=== PATIENT | male | born 1995 | race African-American/Black ===

== ENCOUNTER 2024-04-06 08:34 | Emergency (ER) | payer MEDICAID ==
[~2024-04-06] VITALS: Ht 170.2 cm; Wt 55.0 kg
[2024-04-06 08:53] VITALS: O2SAT 100
[2024-04-06] MEDS ORDERED: HYDR28.485 RC (10:10)
[2024-04-06] MEDS: DIPHENHYDRAMINE 50MG CAPSULE PO ONE (11:19)
[2024-04-06] MEDS: DIPHENHYDRAMINE 25MG CAPSULE PO SCH (11:19)
[2024-04-06 11:21] VITALS: BP 114/60; PULSE 80; RESP 16; TEMP 36.66960; O2SAT 100
== END 2024-04-06 11:22 | disposition home or self-care (01) ==
LOC: ER 08:34
DX: L20.89 Other atopic dermatitis (principal); M79.18 Myalgia, other site; Z98.890 Other specified postprocedural states
CPT/HCPCS: 99282; Q0163

== ENCOUNTER 2024-09-17 15:14 | Emergency (ER) | payer MEDICAID ==
[~2024-09-17] VITALS: Ht 170.2 cm; Wt 58.9 kg
[~2024-09-17 15:14] MED LIST: HYDR28.485 RC
[2024-09-17 15:15] VITALS: O2SAT 99
[2024-09-17 15:20] VITALS: BP 109/64; PULSE 81; RESP 16; TEMP 36.6; O2SAT 98
[2024-09-17] MEDS: IBUPROFEN 800MG TABLET PO ONE ×2 (17:15→18:30)
[2024-09-17] MEDS ORDERED: IBUP-2029 MT (18:36)
== END 2024-09-17 19:03 | disposition home or self-care (01) ==
LOC: ER 15:14
DX: M25.512 Pain in left shoulder (principal)
CPT/HCPCS: 73030; 99283

== ENCOUNTER 2024-11-04 09:39 | Emergency (ER) | payer MEDICAID, OTHER ==
[~2024-11-04] VITALS: Ht 167.6 cm; Wt 66.0 kg
[~2024-11-04 09:39] MED LIST changes: +IBUP-2029 MT
[2024-11-04 09:41] VITALS: O2SAT 100
[2024-11-04] MEDS: FLUORESCEIN SODIUM 1MG/STRIP LEFTEYE ONE (10:29)
[2024-11-04] MEDS: TETRACAINE 0.5% OPHTH DROPS 4ML LEFTEYE ONE (10:29)
[2024-11-04] MEDS ORDERED: BACITRACIN/POLYMYXIN B SULFATE OPHTH OINT 3.5GM LEFTEYE ONE (10:45)
[2024-11-04] MEDS ORDERED: KETO5DRO80 LEFTEYE (10:45)
[2024-11-04] MEDS ORDERED: GENT5DRO38 LEFTEYE (10:45)
[2024-11-04] MEDS: TETANUS, DIPHTHERIA, PERTUSSIS VAC/PF 0.5ML (>10YR OLD) IM ONE (11:16)
[2024-11-04] MEDS: TROPICAMIDE 1% OPHTH DROPS 15ML LEFTEYE ONE (11:19)
[2024-11-04] MEDS: NEOMY SULF/BACITRAC ZN/POLY/HC 1 APP TUBE LEFTEYE NR (11:19)
[2024-11-04 12:02] VITALS: BP 114/71; PULSE 62; RESP 18; TEMP 36.8; O2SAT 100
== END 2024-11-04 12:07 | disposition home or self-care (01) ==
LOC: ER 09:39
DX: S05.00XA Injury of conjunctiva and corneal abrasion without foreign body, unspecified eye, initial encounter (principal); W22.8XXA Striking against or struck by other objects, initial encounter; Y93.89 Activity, other specified; Y92.89 Other specified places as the place of occurrence of the external cause; Y99.9 Unspecified external cause status
CPT/HCPCS: 90715; 90471; 99283; Z7610; A4606

== ENCOUNTER 2025-03-14 10:06 | Emergency (ER) | payer MEDICAID, OTHER ==
[~2025-03-14] VITALS: Ht 170.2 cm; Wt 59.0 kg
[~2025-03-14 10:06] MED LIST changes: +GENT5DRO38 LEFTEYE; +IBUP-1455 MT; -IBUP-2029 MT; +KETO5DRO80 LEFTEYE
[2025-03-14 10:14] VITALS: O2SAT 98
[2025-03-14] MEDS: LIDOCAINE 5% PATCH TOP STA (10:49)
[2025-03-14] MEDS ORDERED: LIDO700A30 TP (10:53)
[2025-03-14] MEDS ORDERED: KETO10TA2 MT (10:53)
[2025-03-14] MEDS ORDERED: CYCL10TA21 MT (10:53)
[2025-03-14] MEDS: KETOROLAC 30MG/ML VIAL IM ONE (10:56)
[2025-03-14 11:09] VITALS: BP 107/78; PULSE 58; RESP 16; TEMP 36.4; O2SAT 99
== END 2025-03-14 11:15 | disposition home or self-care (01) ==
LOC: ER 10:06
DX: R51.9 Headache, unspecified (principal); M54.6 Pain in thoracic spine; M25.522 Pain in left elbow; R07.89 Other chest pain; Z79.899 Other long term (current) drug therapy; Z98.890 Other specified postprocedural states; V49.40XA Driver injured in collision with unspecified motor vehicles in traffic accident, initial encounter; Y93.89 Activity, other specified; Y92.410 Unspecified street and highway as the place of occurrence of the external cause; Y99.8 Other external cause status
CPT/HCPCS: 96372; 99283; J1885; Z7610

== ENCOUNTER 2025-04-28 09:20 | Emergency (ER) | payer OTHER ==
[~2025-04-28] VITALS: Ht 170.2 cm; Wt 57.0 kg
[~2025-04-28 09:20] MED LIST changes: +CYCL10TA21 MT; +KETO10TA2 MT; +LIDO700A30 TP
[2025-04-28 09:29] VITALS: TEMP 37; O2SAT 99
[2025-04-28] MEDS: IBUPROFEN 600MG TABLET PO ONE (10:00)
[2025-04-28 10:38] VITALS: BP 111/68; PULSE 60; RESP 16; O2SAT 98
== END 2025-04-28 10:37 | disposition home or self-care (01) ==
LOC: ER 09:20
DX: R22.2 Localized swelling, mass and lump, trunk (principal); Z79.899 Other long term (current) drug therapy; Z98.890 Other specified postprocedural states
CPT/HCPCS: 71250; 99284